=== PATIENT | female | born 1970 | race Caucasian/White ===

== ENCOUNTER 2023-12-27 10:54 | Emergency (ER) | payer SELFPAY ==
[~2023-12-27] VITALS: Ht 167.6 cm; Wt 67.5 kg
[~2023-12-27 10:54] MED LIST: NO HOME MEDS
[2023-12-27 10:59] VITALS: TEMP 97.5
[2023-12-27 11:27] LABS: BASOPHILS # (AUTO) 0.1 X10'3 (0-0.2); BASOPHILS % (AUTO) 0.6 % (0-1); EOSINOPHILS % (AUTO) 0.3 % (0-6); HEMATOCRIT 53.7 % (35.0-45.0); HEMOGLOBIN 17.6 g/dl (12.0-16.0); LYMPHOCYTES # (AUTO) 3.2 X10'3 (1.1-4.8); LYMPHOCYTES % (AUTO) 24.2 % (21-51); MEAN CORPUSCULAR HEMOGLOBIN 28.9 PG (27.0-31.0); MEAN CORPUSCULAR HGB CONC 32.7 g/dL (33.0-36.5); MEAN CORPUSCULAR VOLUME 88.4 FL (78-98); MONOCYTES # (AUTO) 0.9 X10'3 (0-0.9); NEUTROPHILS # (AUTO) 9.1 X10'3 (1.8-7.7); NEUTROPHILS % (AUTO) 67.9 % (42-75); PLATELET COUNT 318 X10'3 (140-440); RED BLOOD COUNT 6.08 X10'6 (4.20-5.60); WHITE BLOOD COUNT 13.4 X10'3 (4.5-11.0)
[2023-12-27 11:42] LABS: ALANINE AMINOTRANSFERASE 24 U/L (12-78); ALBUMIN 3.9 G/DL (3.4-5.0); ALBUMIN/GLOBULIN RATIO 1.1 (1.1-1.5); ALKALINE PHOSPHATASE 85 IU/L (46-116); ANION GAP 9 (8-16); ASPARTATE AMINO TRANSFERASE 13 U/L (10-37); BILIRUBIN,DIRECT 0.1 MG/DL (0-0.3); BILIRUBIN,TOTAL 0.6 MG/DL (0.1-1.0); BLOOD UREA NITROGEN 14 MG/DL (7-18); BUN/CREATININE RATIO 12.1 (10.0-20.0); CALCIUM 9.6 MG/DL (8.5-10.1); CHLORIDE 101 MMOL/L (99-107); CREATININE 1.16 MG/DL (0.40-0.90); GLUCOSE 131 MG/DL (70-104); LIPASE 27 U/L (16-77); POTASSIUM 4.6 MMOL/L (3.5-5.1); SODIUM 140 MMOL/L (135-145); TOTAL CARBON DIOXIDE 29.9 MMOL/L (24-32); TOTAL PROTEIN 7.6 G/DL (6.4-8.2); eCRCL 52 ML/MIN; eGFR 49 ML/MIN
[2023-12-27] MEDS ORDERED: iohexol 300mg/ml 100ml inj. ONE (12:11)
[2023-12-27] MEDS: normal saline 1000ML IV soln IVB ONE (12:32)
[2023-12-27] MEDS: ondansetron/PF 4mg/2ml inj IV ONE (12:33)
[2023-12-27] MEDS: morphine 4 MG/ML inj SYRINge IV ONE (12:33)
[2023-12-27] MEDS: mag hydrox/Alum hydrox/simeth 30ml oral suspension PO ONE ×2 (13:46→15:20)
[2023-12-27] MEDS: LIDOcaine Viscous 15ml cup MM PRN (13:46)
[2023-12-27] MEDS ORDERED: PANT-47 PO (14:09)
[2023-12-27 14:47] LABS: BILIRUBIN,URINE NEGATIVE (Neg); CLARITY,URINE CLEAR (Clear); COLOR,URINE STRAW (Yellow); GLUCOSE, URINE NEGATIVE (Neg); KETONES,URINE NEGATIVE (Neg); LEUKOCYTE ESTERASE ,URINE NEGATIVE (Neg); NITRITES, URINE NEGATIVE (Neg); OCCULT BLOOD,URINE NEGATIVE (Neg); PROTEIN,URINE NEGATIVE (Neg); UROBILINOGEN,URINE 0.2 E.U/dL (0.2-1.0)
[2023-12-27 14:54] LABS: UA COLLECTION TYPE CLN CATCH MIDSTREAM
[2023-12-27 14:57] LABS: URINE AMPHETAMINE SCREEN POSITIVE (Neg); URINE BARBITUATE SCREEN NEGATIVE (Neg); URINE BENZODIAZEPINES SCREEN NEGATIVE (Neg); URINE CANNABINOID SCREEN POSITIVE (Neg); URINE COCAINE SCREEN NEGATIVE (Neg); URINE METHADONE SCREEN NEGATIVE (Neg); URINE OPIATE SCREEN POSITIVE (Neg); URINE PHENCYCLIDINE SCREEN NEGATIVE (Neg)
[2023-12-27 15:12] VITALS: BP 133/68; PULSE 98; RESP 18; O2SAT 99
[2023-12-27] MEDS ORDERED: LIDOcaine Viscous 15ml cup MM PRN (15:15)
[2023-12-27] MEDS: famotidine 20mg tablet PO ONE (15:17)
[2023-12-27] MEDS: pantoprazole 40mg Tablet.DR PO ONE (15:20)
== END 2023-12-27 15:32 | disposition home or self-care (01) ==
LOC: ER 10:54
DX: R10.84 Generalized abdominal pain (principal); Z79.899 Other long term (current) drug therapy; R11.0 Nausea
CPT/HCPCS: 36415; 74177; 80048; 80076; 80305; 81003; 83690; 85025; 96361; 96374; 96375; 99285; J2270; J2405; J3490; J7030; Q9967

== ENCOUNTER 2023-12-28 03:26 | Emergency (ER) | payer SELFPAY ==
[~2023-12-28 03:26] MED LIST changes: +PANT-47 PO
== END 2023-12-28 04:34 | disposition left against medical advice (07) ==
LOC: ER 03:27
DX: R10.9 Unspecified abdominal pain (principal); Z53.21 Procedure and treatment not carried out due to patient leaving prior to being seen by health care provider